=== PATIENT | female | born 1985 | race Caucasian/White ===

== ENCOUNTER 2016-12-19 21:09 | Emergency (ER) | payer MEDICAID ==
[~2016-12-19] VITALS: Ht 162.6 cm; Wt 90.0 kg
[2016-12-19 21:25] VITALS: Ht 162.6 cm; Wt 90.0 kg
[2016-12-19] MEDS ORDERED: LIDOCAINE 1% (MDV) 20 ML INJ SC ONE (22:00)
[2016-12-19] MEDS ORDERED: CEPH-443 PO (23:03)
[2016-12-19] MEDS ORDERED: IBUP400T22 PO (23:03)
--- NOTE | 2016-12-19 23:28 | ERD ---
ER Documentation Chief Complaint Date/Time DATE: 12/19/16 TIME: 23:22 Chief Complaint LEFT HAND LACERATION FROM CUTTING ONIONS HPI This is a 31-year-old female who presents emergency department for left hand laceration that occurred today. Patient states she was cutting onions when she cut her hand. Laceration occurred about 30 minutes prior to arrival. No active bleeding on the ED. no numbness or tingling to extremities. No loss of sensation. No loss of mobility. Patient states she had tetanus vaccination 2 years ago. ROS All systems reviewed and are negative except as per history of present illness. Medications Home Meds Active Scripts Ibuprofen* (Motrin*) 400 Mg Tab, 400 MG PO Q6, #15 TAB Prov:RASHID GRACE NP 12/19/16 Cephalexin* (Keflex*) 500 Mg Capsule, 500 MG PO QID for 5 Days, CAP Prov:RASHID GRACE NP 12/19/16 PMhx/Soc Medical and Surgical Hx: pt denies Surgical Hx History of Surgery: No Anesthesia Reaction: No Hx Neurological Disorder: No Hx Respiratory Disorders: No Hx Cardiac Disorders: No Hx Psychiatric Problems: No Hx Miscellaneous Medical Probl: Yes (anemia) Hx Alcohol Use: No Hx Substance Use: No Hx Tobacco Use: No Smoking Status: Never smoker Physical Exam Vitals Vital Signs Date Time Temp Pulse Resp B/P Pulse Ox O2 Delivery O2 Flow Rate FiO2 12/19/16 21:25 98.5 69 18 118/77 98 Physical Exam Const: No acute distress, alert Head: Atraumatic Eyes: Normal Conjunctiva ENT: Normal External Ears, Nose and Mouth. Neck: Full range of motion..~ No meningismus. Resp: Clear to auscultation bilaterally Cardio: Regular rate and rhythm, no murmurs Abd: Soft, non tender, non distended. Normal bowel sounds Skin: 1.5inch laceration to lateral side of palm. no surrounding erythema, warmth or drainage. Back: No midline or flank tenderness Ext: No cyanosis, or edema Neur: Awake and alert Psych: Normal Mood and Affect Results 24 hrs Current Medications Medications (Trade) Dose Ordered Sig/Nilson Route PRN Reason Start Time Stop Time Status Last Admin Dose Admin Lidocaine (Xylocaine 1% (Mdv) 20 ml) 20 ml ONCE ONCE SC 12/19/16 22:00 12/19/16 22:01 DC Procedures/MDM Laceration Repair by me: Anesthesia: 1% lidocaine locally Location: Lateral aspect of palm Tendon/Joint/Nerves: No injury Foreign body: None detected after copious irrigation and exploration Technique: 4 simple Interrupted Sutures, 4-0 Complexity: No subcutaneous sutures/mucosal repair/ edge excision Post Closure Length: 1.5 inches Patient's bleeding was easily controlled in the department and there is no indication of anemia. No evidence of compartment syndrome, neurologic injury, vascular injury, open joint, tendon laceration, or foreign body. Patient is appropriate for outpatient follow up. 48 hour wound check. Scar minimization instructions given. Patient verbalized understanding. All questions answered at discharge. Departure Diagnosis: Primary Impression: Laceration Condition: Stable Patient Instructions: Laceration, Hand [facility] Usted se diallo hecho un examen mdico de control que le indica que no est en loida condicin que requiera tratamiento urgente en el Departamento de Emergencia. Un estudio ms profundo y el tratamiento de perez condicin pueden esperar sin ningn riesgo hasta que usted sea atendida/o en el consultorio de perez mdico o loida cl imer. Es responsabilidad suya arreglar loida lauren para el seguimiento del josh. MANEJO DE CONDICIONES NO URGENTES EN EL FUTURO 1) Si usted tiene un mdico de atencin primaria: Usted debera llamar a perez mdico de atencin primaria antes de venir al departamento de emergencia. Despus de las horas de consultorio, perez doctor o perez asociado/a est disponible por telfono. El mdico o enfermero de vivian en el servicio telefnico puede asesorarle por neeta medio para atender el problema, o josh contrario se puede programar loida lauren. 2) Si usted no tiene un mdico de atencin primaria: Llame al mdico o clnica de referencia que aparece abajo lcuian las horas de consultorio para hacer loida lauren para que le vean. CLINICAS: [facility] [phone] [facility] [phone] [facility] [phone] [address] [place] [phone] [place] [address] [phone] [place] [id number] [phone] [facility]. [facility] () Usted se diallo hecho un examen mdico de control que le indica que no est en loida condicin que requiera tratamiento urgente en el Departamento de Emergencia. Un estudio ms profundo y el tratamiento de perez condicin pueden esperar sin ningn riesgo hasta que usted sea atendida/o en el consultorio de perez mdico o loida cl imer. Es responsabilidad suya arreglar loida lauren para el seguimiento del josh. MANEJO DE CONDICIONES NO URGENTES EN EL FUTURO 1) Si usted tiene un mdico de atencin primaria: Usted debera llamar a perez mdico de atencin primaria antes de venir al departamento de emergencia. Despus de las horas de consultorio, perez doctor o perez asociado/a est disponible por telfono. El mdico o enfermero de vivian en el servicio telefnico puede asesorarle por neeta medio para atender el problema, o josh contrario se puede programar loida lauren. 2) Si usted no tiene un mdico de atencin primaria: Llame al mdico o condado institucions de referencia que aparece abajo lucian las horas de consultorio para hacer lioda lauren para que le vean. SI USTED NO PUEDE PAGAR PARA DEMETRIS UN MEDICO puede ir a: [facility] [address] [place] [address] [facility] [address] [place] [address] [facility] [address] [place] [address] [facility] [address] [place] [phone] Additional Instructions: WOUND CHECK:CONSULTE A PEREZ MDICO EN 2 jules para demetris PEREZ HERIDA. RASHID GRACE NP Dec 19, 2016 23:28
== END 2016-12-19 23:25 | disposition home or self-care (01) ==
LOC: FTE 21:09
DX: S61.412A Laceration without foreign body of left hand, initial encounter (principal); W26.8XXA Contact with other sharp object(s), not elsewhere classified, initial encounter; Y92.9 Unspecified place or not applicable
CPT/HCPCS: 12001; Z7502; Z7610

== ENCOUNTER → 2017-05-18 | Outpatient (CLI) | payer MEDICAID ==
[~2017-05-18] VITALS: Ht 165.1 cm; Wt 94.3 kg
[~2017-05-18] MED LIST: AMPICILLIN 1 GM/NS (PMX) 50 ML IV SCH; AMPICILLIN 2 GM/NS (PMX) 100 ML IV ONE; BUTORPHANOL 2 MG INJ IV PRN; CARBOPROST 250 MCG INJ IM PRN; CEPH-443 PO; DINOPROSTONE 10 MG VAG SUPP VAG ONE; IBUP400T22 PO; IBUPROFEN 600 MG TAB PO PRN; LACTATED RINGER'S 1,000 ML IV PRN; LACTATED RINGER'S 1,000 ML IV SCH; LIDOCAINE 1% (MPF) 30 ML INJ INJ PRN; METHYLERGONOVINE 0.2 MG INJ IM PRN; MISOPROSTOL 200 MCG TAB PR PRN; OXYTOCIN 30 UNITS/LR 500 ML IV PRN; OXYTOCIN 30 UNITS/LR 500 ML IV SCH
[2017-05-18 12:50] VITALS: BP 122/75; PULSE 115; RESP 18
[2017-05-18 12:52] VITALS: Ht 165.1 cm; Wt 94.3 kg
--- NOTE | 2017-05-18 13:39 | RADRPT ---
PROCEDURE: US biophysical profile. CLINICAL INDICATION: Leaking amniotic fluid. TECHNIQUE: Multiple sonographic images of the uterus were obtained. The images were revi ewed on a PACS workstation. COMPARISON: No prior studies are available for comparison. FINDINGS: There is a single live intrauterine gestation. heart rate is 143 beats per minute. The position is cephalic. The placenta is tear grade III with no abruption or previa. The LAURYN is 11.7 cm. (Normal = 5-20 cm.) Breathing Movement: 2 Gross Body Movement: 2 Tone: 2 Qualitative Amniotic Fluid Volume: 2 TOTAL: 8 IMPRESSION: 1. The biophysical score is 8/8. RPTAT: QQ .Owen López MD, MD Date Time Electronically viewed and signed by .Owen López MD, on 05/18/2017 13:39 .R/
--- NOTE | 2017-05-18 14:24 | TRIAGE ---
OB Triage Datetime Report Generated by CPN: 05/18/2017 14:24 Datetime: 05/18/2017 14:00 Stage of : OB Triage Labor Evaluation Frequency: 5UC/HR Monitor Mode: External Duration (sec)2399: 60-100 Quality: Mild Pattern: Normal: <= 5 Contractions in 10 Minutes Resting Tone Hilda: Relaxed Heart Rate FHR Baseline Rate: 130 Monitor Mode: External US FHR Baseline Changes: No Baseline Change Variability: Moderate 6-25 bpm Accelerations: 15X15 Decelerations: None Category: Category I Vaginal Bleeding: None Datetime: 05/18/2017 13:05 Stage of : OB Triage Headache: Denies Blurred Vision: No RUQ Epigastric Pain: Denies Facial Edema: None Labor Evaluation Frequency: occ Monitor Mode: External Duration (sec)2399: 60 Quality: Mild Pattern: Normal: <= 5 Contractions in 10 Minutes Resting Tone Hilda: Relaxed Heart Rate FHR Baseline Rate: 145 Monitor Mode: External US FHR Baseline Changes: No Baseline Change Variability: Moderate 6-25 bpm Accelerations: 15X15 Decelerations: None Category: Category I Vaginal Exam Dilatation (cms): 0.0 Exam By: G. CUBIL Vaginal Bleeding: None Pool: Negative Nitrazine: Negative Cervix, Consistency: Firm Cervix, Position: Posterior Datetime: 05/18/2017 12:57 EGA: 38.1 Datetime: 05/18/2017 12:55 Stage of : OB Triage Time of Arrival: 05/18/2017 12:30 Arrived By: Ambulatory Arrived From: Home Chief Complaint: complaining of leaking of water Movement: Present Contractions: Denies/Absent Rupture of Membranes: Unsure Vaginal Bleeding: None Vaginal Discharge: Denies Recent Sexual Intercouse: Denies Abdominal Trauma: Not Applicable Patient Complaints: Other Additional Patient Complaints: presented to triage complaining of leaking of water since 0400, den ies feeling strong contractions, denies bleeding Provider Notified: MISSY Initial Plan: ROM PLUS/NITRAZINE/BPP/ Maternal Assessment Level of Consciousness: Fully Conscious DTR's/Clonus: DTRs 2+; No Clonus Headache: Denies Blurred Vision: No Respiratory Effort: Unlabored; Regular Rhythm; Equal Expansion Breath Sounds, Left: Clear and Equal Breath Sounds, Right: Clear and Equal Nausea/Vomiting: Denies RUQ Epigastric Pain: Denies Lower Extremities Edema: None Degree: None Upper Extremities Edema: None Degree: None Facial Edema: None Temperature Route: Oral Fall Risk Assessment History of Falling: (0) No Secondary Diagnosis: (0) No Ambulatory Aid: (0) Bedrest/Nurse Assist IV Therapy: (0) No Gait: (0) Normal/Bedrest/Immobile Monitor Mode: External Heart Rate FHR Baseline Rate: 150 (Annotations: initial) Monitor Mode: External US Pain Assessment Pain Scale: 3 Pain Presence: Intermittent Pain Type: Cramping Pain Location: Abdomen Pain Goal: 2 Pain Relief Measures: Comfort Measures Datetime: 05/18/2017 12:49 Monitor Mode: External Monitor Mode: External US
--- NOTE | 2017-05-18 15:49 | HP ---
Date/Time of Note Date/Time of Note DATE: 05/18/17 TIME: 15:45 OB - History Hx of Present Free Text/Dictation 31 years old with IUP at 38 weeks and 1 day with PNC at [facility], here presented today with complaint of leaking of fluid since 4: 00am this morning, She denies any complications during her course. SSE: no polling, however + ROM testing noted. while the patient was in Triage Decelerations down to 100 with recovery over 1 min noted. Cervical exam: Closed, long and high. Estimated Due Date: May 31, 2017 : 1 Para: 0 Spontaneous : 0 Therapeutic : 0 Care: Other (Records were not available at the time of admission) Other Concerns: None Past Family/Social History * Past Medical, Surgical, Family and Obstetric Histories reviewed from chart. OB Admission Exam Vital Signs Vital Signs Vital Signs Date Time Temp Pulse Resp B/P Pulse Ox O2 Delivery O2 Flow Rate FiO2 05/18/17 12:50 98.3 115 18 122/75 98 Room Air Physical Exam HEENT: WNL Heart: Rhythm Normal Lungs: Clear Abdomen: WNL Extremities: Normal Cervical Dilatation: 1cm Effacement: 0% Station: -2 Membranes: Ruptured (ROM test. NO pooling ) Heart Rate: 130's Accelerations: Accelerations Present Decelerations: No Decelerations Varibility: Moderate Contractions on Admission: 6-10 Minutes Apart Intensity: Mild OB Assessment/Plan Other Assessment: IUP at 38 weeks and 1 days SROM FHT: Cat 2 Non favourable cervix GBS status unknown, will obtain Discussed with the patient about induction. Risk and benefits discussed. Increased risk of section with induction discussed. Consider cervical ripening with Cervidil. Patient verbalized understanding. Different modes of induction explained. Proceed with above plan Anticipate Follow-up with GBS. If positive consider GBS prophylaxis. THEODORE BEASLEY MD May 18, 2017 15:49
== END | disposition home or self-care (01) ==
LOC: OBT 12:00 → L-D 12:40 → UNDOADMIN 14:20 → L-D 14:28 → OBT 14:28
PROVIDERS: ATTEND Obstetrics & Gynecology
DX: O41.93X0 Disorder of amniotic fluid and membranes, unspecified, third trimester, not applicable or unspecified (principal); Z3A.38 38 weeks gestation of pregnancy
CPT/HCPCS: 76818; 84112; Z7500; G0463; J7120

== ENCOUNTER 2018-04-01 19:38 | Emergency (ER) | END 2018-04-02 00:58 | disposition home or self-care (01) ==

== ENCOUNTER 2018-04-26 22:28 | Emergency (ER) | END 2018-04-27 04:15 | disposition home or self-care (01) ==